=== PATIENT | female | born 1945 | race Caucasian/White ===

== ENCOUNTER 2021-06-28 22:32 | Emergency (ER) | payer OTHER ==
[~2021-06-28] VITALS: Ht 170.2 cm; Wt 76.2 kg
[2021-06-29 02:42] LABS: ABSOLUTE NEUTROPHILS 6.1 thou/uL (1.4-8.2); BASOPHILS 0.2 % (0.0-2.0); EOSINOPHILS 0.4 % (0.0-3.0); HEMATOCRIT 37.8 % (37.0-47.0); HEMOGLOBIN 12.9 gm/dL (12.0-15.0); LYMPHOCYTES 24.6 % (24.0-44.0); MCH 31.7 pg (26.0-34.0); MCHC 34.2 g/dL (28.0-37.0); MCV 92.8 fL (80.0-100.0); MONOCYTES 7.7 % (1.0-8.0); PLATELET COUNT 268 thou/uL (150-400); POLYS 67.1 % (36.0-66.0); RBC 4.08 mil/uL (4.20-5.00); RDW 13.4 % (10.5-14.5)
[2021-06-29 02:46] LABS: CALCIUM 9.2 mg/dL (8.5-10.1); CREATININE 0.8 mg/dL (0.6-1.0); POTASSIUM 4.4 mmol/L (3.5-5.1)
[2021-06-29 03:29] VITALS: BP 132/70
== END 2021-06-29 03:30 | disposition home or self-care (01) ==
LOC: ER 22:32
PROVIDERS: Student in an Organized Health Care Education/Training Program
DX: Z98.51 Tubal ligation status (principal); M25.532 Pain in left wrist